=== PATIENT | female | born 1950 | race Caucasian/White ===

== ENCOUNTER → 2017-10-18 16:13 | Outpatient (CLI) | payer MEDICARE, BC ==
[2010-06-06 18:48] VITALS: BMI 24.2
== END | disposition home or self-care (01) ==
LOC: D.MAMMO 14:30
DX: Z12.31 Encounter for screening mammogram for malignant neoplasm of breast (principal)

== ENCOUNTER 2018-12-04 08:00 | Outpatient (CLI) | payer MEDICARE, BC ==
[2010-06-06 18:48] VITALS: BMI 24.2
== END 2018-12-04 23:59 | disposition home or self-care (01) ==
LOC: D.MAMMO 08:00
PROVIDERS: ATTEND Family Medicine
DX: Z12.31 Encounter for screening mammogram for malignant neoplasm of breast (principal)

== ENCOUNTER → 2019-01-03 10:00 | Outpatient (CLI) | payer MEDICARE, BC ==
[2010-06-06 18:48] VITALS: BMI 24.2
== END | disposition home or self-care (01) ==
LOC: D.MAMMO 10:00
PROVIDERS: ATTEND Family Medicine
DX: R92.8 Other abnormal and inconclusive findings on diagnostic imaging of breast (principal)